=== PATIENT | female | born 1990 | race Caucasian/White ===

== ENCOUNTER 2018-07-19 09:13 | Emergency (ER) | payer OTHER ==
[~2018-07-19] VITALS: Ht 152.4 cm; Wt 54.4 kg
--- NOTE | 2018-07-19 09:23 | NUR ---
PT BIB [employer] FOR OK TO BOOK C/O CHILLS AND REPORTING THAT SHE THINKS SHE IS GOING THROUGH HEROIN WITHDRAWALS, LAST USE 1-2 DAYS AGO. DENIES ETOH USE. REPORTS CIGARETTE SMOKING. ALSO REPORTS BURNING UPON URINATION BUT REFUSING TO PROVIDE URINE SAMPLE AT THIS TIME. STATES LAST MENSTRUAL PERIOD WAS 2 MONTHS AGO AND SUSPECTS SHE IS . RESP EVEN UNLABORED. SKIN WARM DRY. AMBULATORY STEADY GAIT. APPEARS UNCOMFORTABLE BUT IN NO ACUTE DISTRESS. VSS. IN ER BED 10 ON MONITOR, IN [employer] [facility].
--- NOTE | 2018-07-19 09:53 | NUR ---
[facility] AT BEDSIDE
[2018-07-19] MEDS ORDERED: ACETAMINOPHEN 650 MG/20.3 ML UDC PO ONE (10:00)
[2018-07-19] MEDS ORDERED: AZITHROMYCIN 250 MG TABLET PO ONE (10:00)
[2018-07-19] MEDS ORDERED: CEFTRIAXONE 1 G VIAL IM ONE (10:00)
--- NOTE | 2018-07-19 10:04 | NUR ---
PT STILL DOES NOT WANT TO GIVE URINE AFTER ULTRASOUND
[2018-07-19] MEDS ORDERED: LIDOCAINE 1% INJ 50 ML MDV IJ ONE (10:08)
[2018-07-19] MEDS ORDERED: CEFTRIAXONE 1 G VIAL ONE (10:08)
[2018-07-19] MEDS ORDERED: ACETAMINOPHEN 325 MG TABLET ONE (10:09)
[2018-07-19] MEDS ORDERED: AZITHROMYCIN 250 MG TABLET ONE (10:09)
--- NOTE | 2018-07-19 10:23 | NUR ---
Patient discharged to [employer] [facility] in stable condition. Written and verbal after care instructions given. Patient verbalizes understanding of instruction.
[2018-07-19 10:24] VITALS: BP 123/76
== END 2018-07-19 10:26 ==
LOC: ER 09:14
DX: O23.41 Unspecified infection of urinary tract in pregnancy, first trimester (principal); Z3A.08 8 weeks gestation of pregnancy
CPT/HCPCS: 76856; 96372; 99284; A4606; J0696; J3490; Z7610